=== PATIENT | female | born 1955 | race Caucasian/White ===

== ENCOUNTER 2017-12-25 23:55 | Emergency (ER) | payer SELFPAY ==
[~2017-12-25] VITALS: Ht 134.6 cm; Wt 45.9 kg
[2017-12-26] VITALS: BP 153/84
--- NOTE | 2017-12-26 00:05 | NUR ---
PT ASSISTED BACK TO LOBBY
--- NOTE | 2017-12-26 00:53 | NUR ---
PT TAKEN TO BED 5
--- NOTE | 2017-12-26 00:55 | NUR ---
PATIENT PRESENTS TO ED WITH DIZZINESS, PRESSURE IN THE HEAD, X2 WEEKS. PT DENIES N/V/D; SKIN IS PINK/WARM/DRY; AAOX4 WITH EVEN AND STEADY GAIT; LUNGS CLEAR BL; HR EVEN AND REGULAR; PT DENIES ANY FEVER, CP, SOB, OR COUGH AT THIS TIME; PATIENT STATES PAIN OF 0/10 AT THIS TIME; VSS; PATIENT POSITIONED FOR COMFORT; HOB ELEVATED; BEDRAILS UP X1; BED DOWN. ER MD MADE AWARE OF PT STATUS.
--- NOTE | 2017-12-26 01:29 | NUR ---
Dr. Yeh evaluating patient at bedside.
[2017-12-26 04:03] VITALS: BP 153/84
--- NOTE | 2017-12-26 04:03 | NUR ---
Patient discharged with v/s stable. Written and verbal after care instructions given and explained. Patient alert, oriented and verbalized understanding of instructions. Ambulatory with steady gait. All questions addressed prior to discharge. ID band removed. Patient advised to follow up with PMD. Rx of HYDROCORTISONE, AUGMENTIN given. Patient educated on indication of medication including possible reaction and side effects. Opportunity to ask questions provided and answered.
== END 2017-12-26 04:03 | disposition home or self-care (01) ==
LOC: MED 23:55
DX: H66.92 Otitis media, unspecified, left ear (principal); H61.23 Impacted cerumen, bilateral; E78.5 Hyperlipidemia, unspecified
CPT/HCPCS: 99283

== ENCOUNTER 2020-11-27 11:52 | Emergency (ER) | payer SELFPAY ==
[~2020-11-27] VITALS: Ht 129.5 cm; Wt 39.5 kg
[2020-11-27 12:00] VITALS: BP 133/76
--- NOTE | 2020-11-27 12:10 | NUR ---
68/F PRESENTS TO ED WITH C/O SORE THROAT SINCE Thursday11/24/20. STATES SHE WENT TO HER PRIMARY DOCTORS OFFICE YESTERDAY IN WHICH SHE WAS PRESCRIBED KEFLEX, IBUPROFEN, AND MOTRIN AND STATES WHEN SHE TOOK THE KEFLEX SHE FELT LIKE IT GOT STUCK. SHE WAS SENT TO ER TO RULE OUT PERITONSIL ABSCESS WITH DYSPHAGIA. SLIGHT SWELLING AND BULGE NOTED TO LEFT THROAT, NO RESPIRATORY DISTRESS OR DROOLING NOTED.
--- NOTE | 2020-11-27 12:38 | NUR ---
Dr. Franz is evaluating the patient at bedside.
[2020-11-27] MEDS ORDERED: AMPICILLIN/SULBACTAM 3 GM in NACL 0.9% 100 ML IV ONE (12:40)
[2020-11-27] MEDS ORDERED: DEXAMETHASONE 10 MG/ML VIAL IVP ONE (12:40)
[2020-11-27] MEDS ORDERED: AMPICILLIN/SULBACTAM 3 GM VIAL ONE (13:02)
[2020-11-27 13:08] LABS: BASOPHILS # (AUTO) 0.1 K/uL (0.00-0.22); BASOPHILS % (AUTO) 0.4 % (0.0-2.0); HEMATOCRIT 41.5 % (36-48); HEMOGLOBIN 13.9 g/dL (12.0-16.0); LYMPHOCYTES # (AUTO) 1.5 K/uL (2.5-16.5); LYMPHOCYTES % (AUTO) 11.6 % (20.5-51.1); MEAN CORPUSCULAR HEMOGLOBIN 34 pg (27-31); MEAN CORPUSCULAR HGB CONC 34 g/dL (33-37); MEAN CORPUSCULAR VOLUME 101.6 fL (80-94); MONOCYTES % (AUTO) 7.3 % (1.7-9.3); NEUTROPHILS # (AUTO) 10.7 K/uL (1.8-7.7); NEUTROPHILS % (AUTO) 80.7 % (42.2-75.2); PLATELET COUNT (AUTO) 271 K/uL (140-450); RED BLOOD CELL COUNT(AUTO) 4.09 MIL/uL (4.20-5.40); RED CELL DISTRIBUTION WIDTH 12.3 % (11.6-13.7); WHITE BLOOD COUNT (AUTO) 13.2 K/uL (4.8-10.8)
[2020-11-27 13:27] LABS: ALBUMIN 3.9 g/dL (3.4-5.0); ANION GAP 15.1 (8-16); CARBON DIOXIDE 23.6 mmol/L (21-32); CREATININE 0.6 mg/dL (0.6-1.3); POTASSIUM 3.7 mmol/L (3.5-5.1); TOTAL BILIRUBIN 1.2 mg/dL (0.0-1.0)
--- NOTE | 2020-11-27 14:20 | NUR ---
Pt expresses feeling better and asking when she can go home. Pt advised CT is still pending and o wait for results and have the doctor come speak to her about her results. Pt verbalized understanding.
--- NOTE | 2020-11-27 14:46 | NUR ---
Dr. Franz at bedside re-evaluating patient.
[2020-11-27] MEDS ORDERED: AMOX-1000 PO ×2 (14:57→15:16)
[2020-11-27 15:19] VITALS: BP 110/66
== END 2020-11-27 15:15 | disposition home or self-care (01) ==
LOC: MED 11:52
DX: J36 Peritonsillar abscess (principal); E11.9 Type 2 diabetes mellitus without complications
CPT/HCPCS: 36415; 70491; 80053; 85025; 96365; 96366; 96375; 99285; J0295; J1100; Q9967

== ENCOUNTER 2020-11-29 00:05 | Emergency (ER) | payer SELFPAY ==
[~2020-11-29] VITALS: Ht 132.1 cm; Wt 39.6 kg
[~2020-11-29 00:05] MED LIST: AMOX-1000 PO
[2020-11-29 00:17] VITALS: BP 153/90
--- NOTE | 2020-11-29 00:17 | NUR ---
to bed ambulatory
--- NOTE | 2020-11-29 00:30 | NUR ---
TO BED 4 WITH C/O SORE THROAT X 2 DAYS. HAS BEEN ON ANTIBIOTICS FOR THROAT INFECTION SINCE YESTERDAY. RESPIRATIONS ARE REGULAR AND UNLABORED. SPEECH IS SLIGHTLY GARBLED. THROAT CULTURES OBTAINED AND SENT TO LAB
--- NOTE | 2020-11-29 00:35 | NUR ---
Dr. Silva examining patient.
[2020-11-29] MEDS ORDERED: KETOROLAC 30 MG/ML VIAL IM ONE (00:50)
[2020-11-29] MEDS ORDERED: DEXAMETHASONE 4 MG/ML VIAL IM ONE (00:50)
[2020-11-29] MEDS ORDERED: PRED20TA5 PO (01:13)
== END 2020-11-29 01:19 | disposition home or self-care (01) ==
LOC: MED 00:05
DX: J03.90 Acute tonsillitis, unspecified (principal); E11.9 Type 2 diabetes mellitus without complications; E07.9 Disorder of thyroid, unspecified
CPT/HCPCS: 87081; 96372; 99284; J1100; J1885